=== PATIENT | female | born 1990 | race American Indian/Alaskan Native ===

== ENCOUNTER 2017-03-01 22:29 | Emergency (ER) | payer SELFPAY ==
[2017-03-01 23:04] VITALS: BP 121/57
--- NOTE | 2017-03-02 14:38 | ED Elopement Review ---
ED Pt Elopement review - Call Back decision Pt Call Back Decision: Pt to F/U with PMD
== END 2017-03-01 22:52 | disposition left against medical advice (07) ==
LOC: ED 22:29
DX: R53.1 Weakness (principal); Z53.21 Procedure and treatment not carried out due to patient leaving prior to being seen by health care provider
CPT/HCPCS: 93005; 93010

== ENCOUNTER 2018-07-22 16:02 | Inpatient (IN) | payer MEDICAID ==
[2018-07-22 17:08] LABS: Hemoglobin 7.9 gm/dl (10.1-14.3); Mean Corpuscular HGB Conc 33 % (30-34); Mean Corpuscular Volume 87 fl (79-97); Platelet Count 205 K/mm3 (140-440); Red Blood Count 2.75 M/mm3 (3.65-5.03); Red Cell Distribution Width 14.9 % (13.2-15.2)
[2018-07-22 17:15] LABS: Bacteria,Urine 1+ /HPF (Negative); Bilirubin,Urine NEG (Negative); Blood,Urine NEG (Negative); Color,Urine Amber (Yellow); Mucus,Urine 1+ /HPF; Protein,Urine >500 mg/dL (Negative)
[2018-07-22 17:28] LABS: Alanine Aminotransferase 9 units/L (7-56)
[2018-07-22 17:52] LABS: Uric Acid 6.5 mg/dL (3.5-7.6)
[2018-07-23] MEDS ORDERED: ZOFRAN IV PRN (07:17)
--- NOTE | 2018-07-23 07:29 | History and Physical Report ---
History of Present Illness Date of examination: 07/23/18 Date of admission: 07/22/18 19:21 Chief complaint: Swollen feet History of present illness: Pt is a 28yo BF EDC 09/05/18; EGA 33 5/7 weeks presents to L&D complaining of swollen feet and elevated BP's. BP 160/101 but she denies headaches or blurred vision. PIH labs - WNL except urine showed >500mg protein. She received care at [facility] and co-managed by [facility], but re cords are not available. course significant for PIH and Previous C Section. Past History Past Medical History: no pertinent history Past Surgical History: section Social history: no significant social history, - Obstetrical History Expected Date of Delivery: 09/05/18 Actual Gestation: 33 Week(s) 6 Day(s) : 2 Medications and Allergies Allergies Allergy/AdvReac Type Severity Reaction Status Date / Time acetaminophen Allergy Rash Verified 07/22/18 16:43 aspirin Allergy Rash Verified 07/22/18 16:43 ibuprofen Allergy Rash Verified 07/22/18 16:43 Penicillins Allergy Hives Verified 07/22/18 16:43 Home Medications Medication Instructions Recorded Confirmed Last Taken Type Hydroxyprogesterone Caproat/Pf 1 mg IM QWEEK 07/22/18 07/22/18 07/20/18 12:00 History [Hydroxyprogest 250 mg/ml Vial] 1 Pnv No.103/Folic/Om3s/Fish Oil 1 each PO DAILY 07/22/18 07/22/18 07/18/18 09:00 History [ Gummies] 1 Active Meds: Active Medications Acetaminophen (Tylenol) 650 mg PO Q4H PRN PRN Reason: Pain MILD(1-3)/Fever >100.5/MARCOS Betamethasone Acet/Betameth SodPhos (Celestone Soluspan) 12 mg IM Q24HR DARREN Stop: 07/24/18 10:01 Docusate Sodium (Colace) 100 mg PO Q12H PRN PRN Reason: Constipation Lactated Ringer's (Lactated Ringers) 1,000 mls @ 125 mls/hr IV DIRECT DARREN Multivitamins/Iron/Calcium ( Vitamin) 1 each PO QDAY DARREN Ondansetron HCl (Zofran) 4 mg IV Q6H PRN PRN Reason: Nausea And Vomiting Review of Systems All systems: negative - Vital Signs Vital signs: Vital Signs Pulse BP 85 160/101 07/22/18 16:23 07/22/18 16:23 Temp Pulse Resp BP Pulse Ox 98.3 F 79 18 146/83 100 07/22/18 19:40 07/23/18 07:05 07/22/18 19:40 07/23/18 07:05 07/23/18 03:12 - Physical Exam Breasts: Positive: deferred Cardiovascular: Regular rate Lungs: Positive: Clear to auscultation Abdomen: Positive: normal appearance Genitourinary (Female): Positive: normal external genitalia Uterus: Positive: enlarged Extremities: Positive: edema (2+) - Obstetrical FHR: category 1 Uterine Contraction Monitor Mode: External Uterine Contraction Pattern: Absent Results Result Diagrams: 07/22/18 17:00 07/22/18 17:00 Abnormal lab results 07/22/18 07/22/18 Range/Units 17:00 17:00 RBC 2.75 L (3.65-5.03) M/mm3 Hgb 7.9 L (10.1-14.3) gm/dl Hct 24.0 L (30.3-42.9) % Creatinine 0.6 L (0.7-1.2) mg/dL Lactate Dehydrogenase 253 H (91-180) units/L All other labs normal. Assessment and Plan - Patient Problems (1) 33 weeks gestation of Onset Date: 07/23/18 Current Visit: Yes Status: Acute Plan to address problem: A: IUP @ 33 5/7 weeks PIH P: Will admit for Observation Obtain 24 hr urine for protein Manage BP with IV Hydralazine as necessary Begin Betamethasone [facility] consult Obtain records (2) PIH ( induced hypertension) Onset Date: 07/23/18 Current Visit: Yes Status: Acute Qualifiers: Trimester: third trimester Qualified Code(s): O13.3 - Gestational [-induced] hypertension without significant proteinuria, third trimester
[2018-07-23] MEDS ORDERED: TYLENOL PO PRN (08:00)
[2018-07-23] MEDS ORDERED: COLACE PO PRN (08:00)
[2018-07-23] MEDS: CELESTONE SOLUSPAN IM SCH (10:02)
[2018-07-23] MEDS: PRENATAL VITAMIN PO SCH (12:13)
[2018-07-23] MEDS: LACTATED RINGERS 1,000 ML IV SCH (14:40)
--- NOTE | 2018-07-23 14:44 | Consultation ---
History of Present Illness Consult date: 07/23/18 Requesting physician: KATIA KHALIL Reason for consult: gestational hypertension History of present illness: Thank you for your recent consultation regarding the above named patient. As you are aware, this is a 28 year old para 0101 at 33+ weeks gestation (based on an TEJAS of 09/05/18) This is a patient that was admitted to [facility] on Saturday due to complaints of elevated blood pressure and swollen feet. Her BP in her OBs office was > 160/110. She was admitted to rule out preeclampsia. Her blood pressure was moderate to severe on admissoin (see below) She is currently under observation to rule out preeclampsia. Baseline 24 hour urine showed : NOT AVAILABLE. A 24 hour urine is PENDING. Her labs show no signs of HELLP. Symptomatically, the patient describes DENIES dizziness and denies headache. She does NOT describe recent swelling of the face and upper extremities. Her blood pressures are labile (see below) PAST OBSTETRICAL HISTORY: 2013: CS at 26 weeks. BW: 1 pound 12 oz. Complicated by possible plac ental abruption in the setting of preeclampsia (?) PAST MEDICAL HISTORY: * Patient gives a NOT give a history of chronic hypertension. AVAILABLE LAB TEST ON ADMISSION: CBC: See labs in chart Baseline 24 hour urine: > NOT AVAILABLE Current 24 hour urine: PENDING. [facility] ULTRASONOGRAPHY See report in patients chart. RECENT BLOOD PRESSURES: 130/77, 148/79, 162/100 FHR Tracing: Category 1. No recurrent decelerations. Past History Past Medical History: no pertinent history Past Surgical History: no surgical history - Obstetrical History : 2 Medications and Allergies Allergies Allergy/AdvReac Type Severity Reaction Status Date / Time acetaminophen Allergy Rash Verified 07/22/18 16:43 aspirin Allergy Rash Verified 07/22/18 16:43 ibuprofen Allergy Rash Verified 07/22/18 16:43 Penicillins Allergy Hives Verified 07/22/18 16:43 Home Medications Medication Instructions Recorded Confirmed Last Taken Type Hydroxyprogesterone Caproat/Pf 1 mg IM QWEEK 07/22/18 07/22/18 07/20/18 12:00 History [Hydroxyprogest 250 mg/ml Vial] 1 Pnv No.103/Folic/Om3s/Fish Oil 1 each PO DAILY 07/22/18 07/22/18 07/18/18 09:00 History [ Gummies] 1 Active Meds: Active Medications Acetaminophen (Tylenol) 650 mg PO Q4H PRN PRN Reason: Pain MILD(1-3)/Fever >100.5/MARCOS Betamethasone Acet/Betameth SodPhos (Celestone Soluspan) 12 mg IM Q24HR [facility] Stop: 07/24/18 10:01 Last Admin: 07/23/18 10:02 Dose: 12 mg Documented by: Docusate Sodium (Colace) 100 mg PO Q12H PRN PRN Reason: Constipation Lactated Ringer's (Lactated Ringers) 1,000 mls @ 125 mls/hr IV DIRECT DARREN Multivitamins/Iron/Calcium ( Vitamin) 1 each PO QDAY [facility] Last Admin: 07/23/18 12:13 Dose: Not Given Documented by: Ondansetron HCl (Zofran) 4 mg IV Q6H PRN PRN Reason: Nausea And Vomiting - Vital Signs Vital signs: Vital Signs Pulse BP 85 160/101 07/22/18 16:23 07/22/18 16:23 Temp Pulse Resp BP Pulse Ox 97.8 F 85 18 141/91 99 07/23/18 12:14 07/23/18 14:31 07/23/18 12:14 07/23/18 14:31 07/23/18 08:05 Results Result Diagrams: 07/22/18 17:00 07/22/18 17:00 Abnormal lab results 07/22/18 07/22/18 Range/Units 17:00 17:00 RBC 2.75 L (3.65-5.03) M/mm3 Hgb 7.9 L (10.1-14.3) gm/dl Hct 24.0 L (30.3-42.9) % Creatinine 0.6 L (0.7-1.2) mg/dL Lactate Dehydrogenase 253 H (91-180) units/L All other labs normal. Assessment and Plan ASSESSMENT * This is a 28 year old para 0101 at 33 weeks gestation with elevated blood pressure. * Rule out preeclampsia. * Slightly elevated blood pressure. * NO signs of HELLP syndrome. * At the present gestational age, there is some utility to an attempt to prolong gestation to improve outcome. * prolongation should NOT occur in the presence of any signs of symptoms of severe preeclampsia. * Labs show no evidence of HELLP. * Category 1 tracing. RECOMMENDATION: Given her gestational age we would recommend DELIVERY in the presence of any findings which would suggest SEVERE preeclampsia. However, at present, we recommend following up the patient's 24 hour urine along with continued observation. If the patient develops any of the criteria for delivery (see below) during observation we would recommend taking steps to deliver this . Would proceed as follows: 1. Agree with admission for serial BP, urinalysis, PIH labs and observation. 2. Steroids have been administered to enhance lung maturity 3. Obtain a 24 hour urine for trend in protein. 4. Kindly follow-up the results of this patient's repeat 24-hour urine for protein and creatinine clearance and forward them to [facility] for review. 5. At the current gestational age the threshold for delivery would be > 5000 mg of protein or ANY symptoms or lab findings suggestive of severe preeclampsia. 6. In the presence of overt evidence of severe preeclampsia we recommend delivery of this patient. 7. I have indicated that a persistent headache unresponsive to analgesia would be a clear indication for delivery of this patient. 8. Kindly contact [facility] if there is any question as to whether this patient is a candidate for delivery. 9. At 33 weeks gestation; it would appear that there is some benefit to an expectant management protocol to prolong gestation in order to improve outcome without increasing maternal morbidity. In a patient with MILD preeclampsia we recommend DELIVERY at 37 weeks. In a patient with SEVERE preeclampsia we recommend DELIVERY either AT DIAGNOSIS or at 34 weeks gestation. Reference: REFERENCE: Medically indicated late- and early-term deliveries. Committee Opinion No. 560. [employer] [place] [employer]. Obstet Gynecol 2013;121:31396. 10. The indications for discontinuation of expectant management and DELIVERY in this patient would include ANY of the following: * heart rate abnormalities, (ie, bradycardia , repetitive late or variable decelerations) * Significant new onset proteinuria (see above) * Thrombocytopenia * Hemolysis, * Elevation in liver function tests * Blood pressure that is very labile or poorly controlled with reasonable doses of intravenous labetalol * Symptoms of severe pre-eclampsia epigastric discomfort, headache, dizziness, blurred vision, RUQ pain, seizure. * Standard obstetrical indications Thank you for allowing us to participate in the care of this patient. We look forward to the opportunity to assist in her continued management. If you have any questions, we may be reached [phone]. Shaila Mondragon M.D.
[2018-07-23] MEDS ORDERED: APRESOLINE IV ONE (17:31)
[2018-07-24] MEDS: LACTATED RINGERS 1,000 ML IV SCH ×2 (05:47→14:44)
--- NOTE | 2018-07-24 10:51 | Progress Note ---
Assessment and Plan - Patient Problems (1) 33 weeks gestation of Onset Date: 07/23/18 Current Visit: Yes Status: Acute Plan to address problem: A: IUP @ 33 6/7 weeks Severe Preeclampsia Previous C Section P: Discussed with [facility] to proceed with delivery. S/P Betamethasone NICU consultation (2) PIH ( induced hypertension) Onset Date: 07/23/18 Current Visit: Yes Status: Acute Qualifiers: Trimester: third trimester Qualified Code(s): O13.3 - Gestational [-induced] hypertension without significant proteinuria, third trimester Subjective - Subjective Date of service: 07/24/18 Principal diagnosis: IUP @ 33 6/7 weeks; Preeclampsia Interval history: Pt is a 28yo BF EDC 09/05/18; EGA 33 6/7 weeks presents to L&D complaining of swollen feet and elevated BP's. BP 160/101 but she denies headaches or blurred vision. PIH labs - WNL except urine showed >500mg protein. She received care at [facility] and co-managed by [facility]. Her 24 hr urine showed 4035mg protein. Patient reports: movement normal, no new complaints, no loss of fluid, no vaginal bleeding, no contractions Objective - Vital Signs Vital Signs: Vital Signs - 12hr 07/24/18 07/24/18 07/24/18 00:08 00:25 02:08 Temperature 98.1 F Pulse Rate 91 H 96 H Respiratory 18 Rate Blood Pressure 146/85 131/73 07/24/18 07/24/18 07/24/18 04:26 04:27 05:28 Temperature 98.2 F Pulse Rate 91 H 89 90 Respiratory 18 Rate Blood Pressure 165/93 156/88 163/87 07/24/18 07/24/18 07/24/18 06:28 07:28 08:28 Temperature Pulse Rate 92 H 96 H 114 H Respiratory Rate Blood Pressure 170/95 133/99 123/78 07/24/18 07/24/18 07/24/18 09:29 10:47 10:48 Temperature 98.2 F Pulse Rate 99 H 88 Respiratory 18 Rate Blood Pressure 160/82 144/82 - Exam Lungs: Clear to auscultation Abdomen: Present: normal appearance, soft Uterus: Present: normal FHR: category 1 Uterine Contraction Monitor Mode: External Uterine Contraction Pattern: Absent - Labs Labs: Abnormal Labs 07/22/18 07/22/18 07/23/18 17:00 17:00 18:10 RBC 2.75 L Hgb 7.9 L Hct 24.0 L Creatinine 0.6 L Lactate Dehydrogenase 253 H Ur Total Protein 24 Hr 4035.00 H Urine Total Protein 269 H Laboratory Results - last 24 hr 07/23/18 18:10 Urine Total Volume 1500 Ur Total Protein 24 Hr 4035.00 H Urine Total Protein 269 H
[2018-07-24] MEDS: PRENATAL VITAMIN PO SCH (11:21)
[2018-07-24] MEDS: CELESTONE SOLUSPAN IM SCH (11:21)
[2018-07-24] MEDS ORDERED: BICITRA PO ONE (14:16)
[2018-07-24] MEDS ORDERED: REGLAN IV ONE (14:16)
[2018-07-24] MEDS ORDERED: PEPCID IV ONE (14:16)
[2018-07-24] MEDS ORDERED: GENTAMICIN 120 MG in NACL 0.9% 100 ML IV SCH (14:30)
[2018-07-24] MEDS ORDERED: CLEOCIN 600 MG/50 mL 600 MG/50 ML BAG IV NR (15:00)
[2018-07-24] MEDS ORDERED: LACTATED RINGERS 1,000 ML IV SCH (15:00)
[2018-07-24] MEDS ORDERED: PITOCin/NS 20 UNIT/1000ML DRIP 20 UNITS/1,000 ML BAG IV SCH (15:00)
[2018-07-24] MEDS ORDERED: GENTAMICIN/NS 120MG/100ML 120 MG/100 ML BAG IV ONE (15:00)
[2018-07-24 15:42] LABS: Hematocrit 24.1 % (30.3-42.9); Hemoglobin 7.7 gm/dl (10.1-14.3); Mean Corpuscular HGB Conc 32 % (30-34); Mean Corpuscular Volume 87 fl (79-97); Platelet Count 198 K/mm3 (140-440); Red Blood Count 2.77 M/mm3 (3.65-5.03); Red Cell Distribution Width 15.3 % (13.2-15.2)
--- NOTE | 2018-07-24 16:09 | Consultation ---
History of Present Illness Consult date: 07/24/18 Requesting physician: KATIA KHALIL Reason for consult: gestational hypertension History of present illness: Thank you for your recent consultation regarding the above named patient. As you are aware, this is a 28 year old para 0101 at 33-34 weeks gestation (based on an TEJAS of 09/05/18) This is a patient that was admitted to [facility] on Saturday due to complaints of elevated blood pressure and swollen feet. Her BP in her OBs office was > 160/110. She was admitted to rule out preeclampsia. Her blood pressure was moderate to severe on admissoin (see below) She is currently under observation to rule out preeclampsia. Baseline 24 hour urine showed : NOT AVAILABLE. A 24 hour urine is 137/80, 185/105, 168/89, 151/70. Her labs show no signs of HELLP. Symptomatically, the patient describes DENIES dizziness and denies headache. She does NOT describe recent swelling of the face and upper extremities. Her blood pressures are labile (see below) PAST OBSTETRICAL HISTORY: 2013: CS at 26 weeks. BW: 1 pound 12 oz. Complicated by possible placental abruption in the setting of preeclampsia (?) PAST MEDICAL HISTORY: * Patient gives a NOT give a history of chronic hypertension. AVAILABLE LAB TEST ON ADMISSION: CBC: See labs in chart Baseline 24 hour urine: > NOT AVAILABLE Current 24 hour urine: 4035. [facility] ULTRASONOGRAPHY See report in patients chart. RECENT BLOOD PRESSURES: 137/80, 185/105, 168/89, 151/70 FHR Tracing: Category 1. No recurrent decelerations. Past History Past Medical History: no pertinent history Past Surgical History: section - Obstetrical History : 2 Medications and Allergies Allergies Allergy/AdvReac Type Severity Reaction Status Date / Time acetaminophen Allergy Rash Verified 07/22/18 16:43 aspirin Allergy Rash Verified 07/22/18 16:43 ibuprofen Allergy Rash Verified 07/22/18 16:43 Penicillins Allergy Hives Verified 07/22/18 16:43 Home Medications Medication Instructions Recorded Confirmed Last Taken Type Hydroxyprogesterone Caproat/Pf 1 mg IM QWEEK 07/22/18 07/22/18 07/20/18 12:00 History [Hydroxyprogest 250 mg/ml Vial] 1 Pnv No.103/Folic/Om3s/Fish Oil 1 each PO DAILY 07/22/18 07/22/18 07/18/18 09:00 History [ Gummies] 1 Active Meds: Active Medications Acetaminophen (Tylenol) 650 mg PO Q4H PRN PRN Reason: Pain MILD(1-3)/Fever >100.5/MARCOS Docusate Sodium (Colace) 100 mg PO Q12H PRN PRN Reason: Constipation Lactated Ringer's (Lactated Ringers) 1,000 mls @ 125 mls/hr IV DIRECT DARREN Last Admin: 07/24/18 14:44 Dose: 125 mls/hr Documented by: Oxytocin/Sodium Chloride (Pitocin/Ns 20 Unit/1000ml Drip) 20 units in 1,000 mls @ 0 mls/hr IV TITR DARREN Lactated Ringer's (Lactated Ringers) 1,000 mls @ 2,250 mls/hr IV PREOP DARREN Stop: 07/25/18 15:27 Clindamycin HCl (Cleocin 600 Mg/50 Ml) 600 mg in 50 mls @ 100 mls/hr IV PREOP NR; Protocol Stop: 07/24/18 23:59 Multivitamins/Iron/Calcium ( Vitamin) 1 each PO QDAY [facility] Last Admin: 07/24/18 11:21 Dose: Not Given Documented by: Ondansetron HCl (Zofran) 4 mg IV Q6H PRN PRN Reason: Nausea And Vomiting - Vital Signs Vital signs: Vital Signs Pulse BP 85 160/101 07/22/18 16:23 07/22/18 16:23 Temp Pulse Resp BP Pulse Ox 98.4 F 97 H 18 186/104 99 07/24/18 13:35 07/24/18 14:28 07/24/18 13:35 07/24/18 14:28 07/23/18 08:05 Results Result Diagrams: 07/24/18 15:02 07/22/18 17:00 Abnormal lab results 07/23/18 07/24/18 Range/Units 18:10 15:02 WBC 12.0 H (4.5-11.0) K/mm3 RBC 2.77 L (3.65-5.03) M/mm3 Hgb 7.7 L (10.1-14.3) gm/dl Hct 24.1 L (30.3-42.9) % RDW 15.3 H (13.2-15.2) % Ur Total Protein 24 Hr 4035.00 H (2-200) mg/dL Urine Total Protein 269 H (5-11.8) mg/dL All other labs normal. Assessment and Plan ASSESSMENT * This is a 28 year old para 0101 at 33-34 weeks gestation with elevated blood pressure. * Rule out preeclampsia. * Slightly elevated blood pressure. * NO signs of HELLP syndrome. * At present, we would recommend DELIVERY rather than expectant management. Blood pressures during observation are consistent with SEVERE PREECLAMPSIA. RECOMMENDATIONS: I've indicated to the patient that there are a number of medical complications which would require early delivery as a general rule for any gestation. I've indicated that unexplained vaginal bleeding, spontaneous labor, - induced hypertension and other complications would require delivery before an elective delivery. I've also indicated the recommendations from the [place] [employer] published in the ACOG committee opinion number 560 regarding early term delivery. As well as recent studies from the Journal Obstetrics and Gynecology published in July [address] Aparicio et al indicate that for chronic hypertension with signs of severe preelcampsia should be delivered after 34 weeks of gestation. Based on the fact that this patient has preeclampsia and new onset neurological symptoms as well as elevated systolic blood pressure we would recommend DELIVERY of this rather than continued expectant management. REFERENCE: Medically indicated late- and early-term deliveries. Committee Opinion No. 560. [place] [employer]. Obstet Gynecol 2013;121:95536. Would proceed as follows: * Given the current findings we would recommend delivery for this patient. * We recommend DELIVERY for this patient. * We would recommend repeat CS for. Thank you for allowing us to participate in the care of this patient. We look forward to the opportunity to assist in her continued management. If you have any questions, we may be reached [phone] Shaila Mondragon M.D.
[2018-07-24] MEDS ORDERED: APRESOLINE ONE ×2 (19:17→23:27)
[2018-07-24] MEDS ORDERED: APRESOLINE IV ONE (19:45)
[2018-07-25] MEDS ORDERED: WATER FOR IRRIG STERILE IR ONE (00:20)
[2018-07-25] MEDS ORDERED: NACL 0.9% IR ONE (00:20)
--- NOTE | 2018-07-25 01:11 | Operative Report ---
Operative Report Operative Report: Date of procedure: 07/25/2018 Pre-operative diagnosis: 1. Intrauterine at 34-0/7 weeks 2. Severe preeclampsia 3. Previous Post-operative diagnosis: Same Procedure name(s): Repeat low transverse section Surgeon: Bill Garnica MD [employer]: None Anesthesia: Spinal anesthesia by Dr. Stafford EBL: 400 mls Findings: A 2026 gram female Apgars 5 at 1 minute 9 at 5 minutes. Clear amniotic fluid. Normal uterus. Normal tubes and ovaries bilaterally. Procedure: After the patient was prepped and draped in usual sterile fashion, and after satisfactory level of epidural anesthesia was obtained, the skin knife was used to make a transverse skin incision through the previous skin scar. The incision was excised down to layer of the fascia, which was nicked in the midline and extended laterally using the Bovie cautery. The rectus muscles were dissected off the rectus fascia both superiorly and inferiorly. The rectus bellies in the midline, and the peritoneum was entered under direct visualization. The peritoneal incision was extended superiorly and inferiorly. A bladder flap was created and the bladder blade was then placed. The uterus was scored in a curvilinear linear fashion, entered in the midline revealing clear amniotic fluid. The infant's head was delivered onto the surgical field, and the oropharynx and nasopharynx were bulb suctioned. The rest of the infant's body was delivered, cord was doubly clamped and cut and the infant was handed to the waiting respiratory team. Cord blood was then obtained. The placenta was manually removed from the uterus, and the uterus removed from its normal anatomical position. After gentle uterine lavage, the incision was inspected and found to be without extensions. It was then closed in 2 layers using 0 Vicryl suture in a running interlocking fashion, the second layer imbricating the first. After good hemostasis was achieved, copious amounts or irrigation was performed, and the gutters were suctioned free of blood and blood clots. The Tisseel sealant was sprayed across the uterine incision. The uterus was then returned to its normal anatomical position, and after excellent hemostasis assured, the peritoneum was re-approximated using 3-0 Vicryl suture in a running interlocking fashion, and then the rectus muscles were re- approximated using 3-0 Vicryl suture in a [id number] configuration. The fascia was then re-approximated using 0 Vicryl suture in running interlocking fashion. The subcutaneous layer was made hemostatic using Bovie cautery, the Tisseel sealant was sprayed across the fascial incision and the skin edges re- approximated using 4-0 Vicryl suture in a sub-cuticular fashion. Patient tolerated the procedure well was transported to recovery in stable condition.
[2018-07-25] MEDS ORDERED: PHENERGAN PR PRN (01:13)
[2018-07-25] MEDS ORDERED: IBUPROFEN PO PRN (01:13)
[2018-07-25] MEDS ORDERED: TORADOL IV PRN ×3 (01:13→01:38)
[2018-07-25] MEDS ORDERED: MYLICON PO PRN (01:13)
[2018-07-25] MEDS ORDERED: MAGNESIUM SULFATE 4GM/100ML 4 GM/100 ML BAG IV ONE (01:13)
[2018-07-25] MEDS ORDERED: LANSINOH TP PRN (01:13)
[2018-07-25] MEDS ORDERED: SENOKOT PO PRN (01:13)
[2018-07-25] MEDS ORDERED: TUCKS PAD TP PRN (01:13)
[2018-07-25] MEDS ORDERED: MILK OF MAGNESIA PO PRN (01:13)
[2018-07-25] MEDS ORDERED: NARCAN 0.4 MG/1 ML IV PRN (01:13)
[2018-07-25] MEDS ORDERED: TYLENOL PO PRN (01:38)
[2018-07-25] MEDS ORDERED: ZOFRAN IV PRN (01:38)
--- NOTE | 2018-07-25 01:46 | Progress Note ---
Subjective Date of service: 07/25/18 Principal diagnosis: IUP @ 33 6/7 weeks; Preeclampsia Interval history: Surgeon requested block for postop analgesia in this 28 y/o female s/p c section. Informed consent obtained. After completion of the procedure, bilateral quadratus lumborum blocks were performed in clean fashion with chloroprep. 30 ml 0.25% bupivacaine with 4 mg decadron placed in each side. Ultrasound guidance was used. Pt tolerated the procedure well. Objective - Constitutional Vitals: Vital Signs - 12hr 07/24/18 07/24/18 07/24/18 14:28 18:28 19:18 Temperature Pulse Rate 97 H 103 H 102 H Respiratory Rate Blood Pressure 186/104 199/103 168/95 07/24/18 07/24/18 07/24/18 19:20 19:27 19:28 Temperature 98.8 F Pulse Rate 102 H 104 H Respiratory 18 Rate Blood Pressure 168/95 160/85 07/24/18 07/24/18 07/24/18 20:09 20:28 23:14 Temperature Pulse Rate 117 H 110 H 106 H Respiratory Rate Blood Pressure 141/87 161/94 172/104 07/24/18 07/24/18 23:36 23:38 Temperature Pulse Rate 110 H 110 H Respiratory Rate Blood Pressure 174/102 174/102 - Labs CBC & Chem 7: 07/24/18 15:02 07/22/18 17:00 Labs: Abnormal lab results 07/24/18 Range/Units 15:02 WBC 12.0 H (4.5-11.0) K/mm3 RBC 2.77 L (3.65-5.03) M/mm3 Hgb 7.7 L (10.1-14.3) gm/dl Hct 24.1 L (30.3-42.9) % RDW 15.3 H (13.2-15.2) %
[2018-07-25] MEDS ORDERED: SODIUM CHLORIDE FLUSH SYRINGE 10 ML IV NR ×2 (02:00)
[2018-07-25] MEDS ORDERED: CLEOCIN 600 MG/50 mL 600 MG/50 ML BAG IV SCH (02:00)
[2018-07-25] MEDS: PITOCin/NS 20 UNIT/1000ML DRIP 20 UNITS/1,000 ML BAG IV SCH ×2 (03:52→07:05)
[2018-07-25] MEDS: MAGNESIUM SULFATE 40GM/1000ML 40 GM/1,000 ML BAG IV SCH ×2 (03:52→19:38)
[2018-07-25] MEDS: NORCO 5/325 PO PRN ×4 (05:36→22:00)
[2018-07-25] MEDS: PRENATAL VITAMIN PO SCH (10:00)
[2018-07-25] MEDS: FEOSOL PO SCH (10:00)
[2018-07-25] MEDS ORDERED: APRESOLINE IV PRN (11:28)
[2018-07-25] MEDS: NORMODYNE PO SCH ×2 (13:57→22:00)
[2018-07-25 15:04] LABS: Hemoglobin 7.3 gm/dl (10.1-14.3)
[2018-07-25] MEDS: LACTATED RINGERS 1,000 ML IV SCH (19:38)
[2018-07-26] MEDS ORDERED: M-M-R II VACCINE SUB-Q ONE (06:00)
[2018-07-26] MEDS ORDERED: BOOSTRIX IM ONE (06:00)
[2018-07-26] MEDS: NORCO 5/325 PO PRN ×2 (09:36→16:35)
[2018-07-26] MEDS: FEOSOL PO SCH (10:00)
[2018-07-26] MEDS: PRENATAL VITAMIN PO SCH (10:01)
[2018-07-26] MEDS: NORMODYNE PO SCH ×2 (10:01→22:26)
--- NOTE | 2018-07-26 10:35 | Progress Note ---
Assessment and Plan - Patient Problems (1) 33 weeks gestation of Onset Date: 07/23/18 Current Visit: Yes Status: Resolved (2) PIH ( induced hypertension) Onset Date: 07/23/18 Current Visit: Yes Status: Resolved Qualifiers: Trimester: third trimester Qualified Code(s): O13.3 - Gestational [-induced] hypertension without significant proteinuria, third trimester (3) Status post Onset Date: 07/26/18 Current Visit: Yes Status: Resolved Plan to address problem: A: S/P Repeat C Section - POD #1 Doing well PIH - BP's stable on labetolol 200mg BID Asymptomatic anemia - stable P: Continue RPOC Anticipate discharge in 24-48hrs Subjective - Subjective Date of service: 07/26/18 Principal diagnosis: s/p C Section - POD #1 Interval history: Pt is feeling well without complaints. Bleeding improved. She denies headaches or blurred vision. Patient reports: appetite normal, voiding normally, pain well controlled, flatus, ambulating normally, no dizzy ambulation, no nauseated [place]: doing well, in NICU Objective - Vital Signs Latest vital signs: Vital Signs Temp Pulse Resp BP BP BP 07/26/18 07:11 98.1 F 86 18 145/91 07/26/18 04:25 98.4 F 88 20 130/86 07/26/18 03:30 97.2 F L 89 18 128/64 07/26/18 03:26 89 128/64 07/26/18 03:17 87 109/60 07/26/18 02:17 83 133/78 07/26/18 01:20 98.2 F 94 H 18 142/79 07/26/18 01:17 94 H 142/79 07/26/18 00:17 93 H 132/70 07/25/18 23:17 90 127/66 07/25/18 22:16 90 140/89 07/25/18 22:00 18 07/25/18 21:17 96 H 124/76 07/25/18 20:17 90 121/74 07/25/18 19:17 98.1 F 89 18 148/98 07/25/18 19:16 89 148/98 07/25/18 19:09 91 H 147/97 07/25/18 18:54 91 H 142/92 07/25/18 18:39 90 150/106 07/25/18 18:24 90 140/94 07/25/18 18:09 85 145/93 07/25/18 17:54 94 H 135/89 07/25/18 17:39 98 H 154/107 07/25/18 17:24 92 H 145/97 07/25/18 17:09 93 H 153/100 07/25/18 16:54 95 H 152/102 07/25/18 16:39 93 H 147/94 07/25/18 16:24 87 125/77 07/25/18 16:09 90 122/75 07/25/18 15:54 87 126/79 07/25/18 15:39 90 135/86 07/25/18 15:24 91 H 142/86 07/25/18 15:09 93 H 140/85 07/25/18 14:54 90 140/85 07/25/18 14:39 94 H 140/85 07/25/18 14:24 90 142/87 07/25/18 14:09 96 H 147/90 07/25/18 13:54 96 H 157/97 07/25/18 13:39 105 H 168/102 07/25/18 13:09 104 H 151/96 07/25/18 12:54 98 H 168/103 07/25/18 12:39 101 H 163/100 07/25/18 12:24 98 H 160/100 07/25/18 12:10 98.3 F 92 H 22 146/85 07/25/18 12:09 100 H 153/90 07/25/18 11:54 98 H 169/109 07/25/18 11:39 100 H 166/107 07/25/18 11:24 96 H 165/106 07/25/18 11:09 97 H 158/99 07/25/18 10:54 98 H 166/98 07/25/18 10:39 95 H 160/91 Intake and Output 07/25/18 07/26/18 07/26/18 22:59 06:59 14:59 Intake Total 18.333 147.083 360 Output Total 4550 700 Balance -4531.663 -724.970 360 Intake: IV 18.333 147.083 MAGNESIUM SULFATE 40GM/ 18.333 147.083 1000ML 40 gm In 1,000 ml @ 1 GM/HR 25 mls/hr IV DIRECT [facility] Rx#:[id number] Oral 360 Output: Urine 4550 700 Void 4550 700 Other: Total, Intake Amount 360 Total, Output Amount 800 700 - Exam Breasts: Present: deferred Cardiovascular: Present: Regular rate Lungs: Present: Clear to auscultation Abdomen: Present: normal appearance, soft Uterus: Present: normal, firm, fundal height below umbilicus Extremities: Present: normal Incision: Present: normal, dry, intact, dressed - Labs Labs: Abnormal lab results 07/25/18 07/25/18 07/25/18 Range/Units 14:32 14:32 18:31 Hgb 7.3 L (10.1-14.3) gm/dl Hct 23.0 L (30.3-42.9) % Magnesium 6.30 H 6.90 H (1.7-2.3) mg/dL Laboratory Tests 07/22/18 07/22/18 07/22/18 17:00 17:00 17:00 WBC 9.2 RBC 2.75 L Hgb 7.9 L Hct 24.0 L MCV 87 MCH 29 MCHC 33 RDW 14.9 Plt Count 205 Creatinine 0.6 L Estimated GFR > 60 Uric Acid 6.5 Magnesium AST 18 ALT 9 Lactate Dehydrogenase 253 H Urine Color [place] Urine Turbidity Clear Urine pH 6.0 Ur Specific [place] 1.029 Urine Protein >500 Urine Glucose (UA) Neg Urine Ketones Tr Urine Blood Neg Urine Nitrite Neg Urine Bilirubin Neg Urine Urobilinogen 4.0 Ur Leukocyte Esterase Neg Urine WBC (Auto) 6.0 Urine RBC (Auto) 6.0 U Epithel Cells (Auto) 10.0 Urine Bacteria (Auto) 1+ Urine Mucus 1+ Urine Total Volume Ur Total Protein 24 Hr Urine Total Protein Hep Bs Antigen HIV 1&2 Antibody Rapid HIV P24 Antigen Rubella IgG Antibody Blood Type Antibody Screen 07/22/18 07/23/18 07/24/18 18:50 18:10 14:55 WBC RBC Hgb Hct MCV MCH MCHC RDW Plt Count Creatinine Estimated GFR Uric Acid Magnesium AST ALT Lactate Dehydrogenase Urine Color Urine Turbidity Urine pH Ur Specific [place] Urine Protein Urine Glucose (UA) Urine Ketones Urine Blood Urine Nitrite Urine Bilirubin Urine Urobilinogen Ur Leukocyte Esterase Urine WBC (Auto) Urine RBC (Auto) U Epithel Cells (Auto) Urine Bacteria (Auto) Urine Mucus Urine Total Volume 1500 Ur Total Protein 24 Hr 4035.00 H Urine Total Protein 269 H Hep Bs Antigen HIV 1&2 Antibody Rapid HIV P24 Antigen Rubella IgG Antibody Blood Type O POSITIVE O POSITIVE Antibody Screen Negative Negative 07/24/18 07/25/18 07/25/18 15:02 06:11 14:32 WBC 12.0 H RBC 2.77 L Hgb 7.7 L Hct 24.1 L MCV 87 MCH 28 MCHC 32 RDW 15.3 H Plt Count 198 Creatinine Estimated GFR Uric Acid Magnesium 3.70 H 6.30 H AST ALT Lactate Dehydrogenase Urine Color Urine Turbidity Urine pH Ur Specific [place] Urine Protein Urine Glucose (UA) Urine Ketones Urine Blood Urine Nitrite Urine Bilirubin Urine Urobilinogen Ur Leukocyte Esterase Urine WBC (Auto) Urine RBC (Auto) U Epithel Cells (Auto) Urine Bacteria (Auto) Urine Mucus Urine Total Volume Ur Total Protein 24 Hr Urine Total Protein Hep Bs Antigen HIV 1&2 Antibody Rapid HIV P24 Antigen Rubella IgG Antibody Blood Type Antibody Screen 07/25/18 07/25/18 07/25/18 14:32 14:32 14:32 WBC RBC Hgb 7.3 L Hct 23.0 L MCV MCH MCHC RDW Plt Count Creatinine Estimated GFR Uric Acid Magnesium AST ALT Lactate Dehydrogenase Urine Color Urine Turbidity Urine pH Ur Specific [place] Urine Protein Urine Glucose (UA) Urine Ketones Urine Blood Urine Nitrite Urine Bilirubin Urine Urobilinogen Ur Leukocyte Esterase Urine WBC (Auto) Urine RBC (Auto) U Epithel Cells (Auto) Urine Bacteria (Auto) Urine Mucus Urine Total Volume Ur Total Protein 24 Hr Urine Total Protein Hep Bs Antigen Non-reactive HIV 1&2 Antibody Rapid HIV P24 Antigen Rubella IgG Antibody Immune Blood Type Antibody Screen 07/25/18 07/25/18 14:32 18:31 WBC RBC Hgb Hct MCV MCH MCHC RDW Plt Count Creatinine Estimated GFR Uric Acid Magnesium 6.90 H AST ALT Lactate Dehydrogenase Urine Color Urine Turbidity Urine pH Ur Specific [place] Urine Protein Urine Glucose (UA) Urine Ketones Urine Blood Urine Nitrite Urine Bilirubin Urine Urobilinogen Ur Leukocyte Esterase Urine WBC (Auto) Urine RBC (Auto) U Epithel Cells (Auto) Urine Bacteria (Auto) Urine Mucus Urine Total Volume Ur Total Protein 24 Hr Urine Total Protein Hep Bs Antigen HIV 1&2 Antibody Rapid Non react HIV P24 Antigen Non react Rubella IgG Antibody Blood Type Antibody Screen
[2018-07-26] MEDS: PERCOCET 5/325 PO PRN (20:13)
[2018-07-26] MEDS: IBUPROFEN PO PRN (22:35)
[2018-07-27] MEDS: PERCOCET 5/325 PO PRN (02:15)
[2018-07-27 09:00] VITALS: BP 149/81
[2018-07-27] MEDS: IBUPROFEN PO PRN (09:35)
[2018-07-27] MEDS: PRENATAL VITAMIN PO SCH (09:35)
[2018-07-27] MEDS: NORCO 5/325 PO PRN (09:35)
[2018-07-27] MEDS: NORMODYNE PO SCH (09:35)
--- NOTE | 2018-07-27 10:14 | Progress Note ---
Assessment and Plan - Patient Problems (1) 33 weeks gestation of Onset Date: 07/23/18 Current Visit: Yes Status: Resolved (2) PIH ( induced hypertension) Onset Date: 07/23/18 Current Visit: Yes Status: Resolved Qualifiers: Trimester: third trimester Qualified Code(s): O13.3 - Gestational [-induced] hypertension without significant proteinuria, third trimester (3) Status post Onset Date: 07/26/18 Current Visit: Yes Status: Resolved Plan to address problem: A: S/P Repeat C Section - POD #2 Doing well PIH - BP's stable on labetolol 200mg BID Asymptomatic anemia - stable P: May go home today Follow up in office in 1 week for BP check. Subjective - Subjective Date of service: 07/27/18 Principal diagnosis: s/p C Section - POD #2 Interval history: Pt is feeling well without complaints. Bleeding improved. She denies headaches or blurred vision. She is tolerating a reg diet without nausea or vomiting, ambulating and voiding without difficulty. Patient reports: appetite normal, voiding normally, pain well controlled, flatus, ambulating normally, no dizzy ambulation, no nauseated : doing well, in NICU Objective - Vital Signs Latest vital signs: Vital Signs Temp Pulse Resp BP BP 07/27/18 07:47 97.6 F 79 18 149/81 07/27/18 04:00 98.7 F 79 18 142/84 07/27/18 00:00 99 F 77 18 132/78 07/26/18 22:26 91 H 151/96 07/26/18 20:13 20 07/26/18 19:30 99.7 F H 81 18 146/90 07/26/18 18:42 160/96 Intake and Output 07/26/18 07/27/18 07/27/18 22:59 06:59 14:59 Intake Total 780 300 240 Balance 780 300 240 Intake: Oral 480 240 Intake, Free Water 300 300 Other: Total, Intake Amount 480 240 # Voids Void 1 - Exam Cardiovascular: Present: Regular rate Lungs: Present: Clear to auscultation Abdomen: Present: normal appearance Uterus: Present: normal, firm, fundal height below umbilicus Extremities: Present: edema Incision: Present: normal, dry, intact
--- NOTE | 2018-07-27 10:19 | Discharge Summary ---
Providers - Providers Date of Admission: 07/24/18 09:18 Date of discharge: 07/27/18 Attending physician: KATIA KHALIL 07/23/18 07:37 Consult to Physician [CONS] Routine Comment: Consulting Provider: BAILEY TURNER Physician Instructions: Reason For Exam: IUP @ 33 week 07/24/18 14:18 Consult to Physician [CONS] Routine Comment: Consulting Provider: IRMA CALHOUN Physician Instructions: Reason For Exam: IUP @ 34 weeks Primary care physician: KATIA KHALIL Hospitalization Reason for admission: IUP - , observation, other (Chronic hypertension with superimposed preeclampsia) Delivery: Procedure: section, repeat low transverse Laceration: none Incision: normal, dry, intact Other procedures: none complications: none Discharge diagnosis: delivery baby: female Hospital course: Pt is a 28yo BF EDC 09/05/18; EGA 33 6/7 weeks who presented to L&D co mplaining of swollen feet and elevated BP's. BP 160/101 but she denied headaches or blurred vision. PIH labs - WNL except urine showed >500mg protein. She received [facility] at [facility] and co-managed by SAJAN. Her 24 hr urine showed 4035mg protein and she was therefore dispositioned for delivery due to Severe Preeclampsia. She underwent an uncomplicated Repeat C Section and tolerated the procedure well. By POD #1 she was tolerating a reg diet without nausea or vomiting, ambulating and voiding without difficulty. She was therefore discharged to home on POD #2 in stable condition. Condition at discharge: Good Disposition: [id number] TO HOME OR SELFCARE - Discharge Diagnoses (1) 33 weeks gestation of Status: Resolved (2) PIH ( induced hypertension) Status: Resolved Qualifiers: Trimester: third trimester Qualified Code(s): O13.3 - Gestational [-induced] hypertension without significant proteinuria, third trimester (3) Status post Status: Resolved Plan - Discharge Medications Prescriptions: Ferrous Sulfate [Feosol 325 MG tab] 325 mg PO QDAY #60 tablet HYDROcodone/APAP 5-325 [[place] 5-325 mg TAB] 1 each PO Q6HR PRN #30 tablet PRN Reason: Pain, Moderate (4-6) Ibuprofen [Motrin 800 MG tab] 800 mg PO Q6H PRN #30 tablet PRN Reason: Pain, Mild (1-3) Labetalol [Normodyne TAB] 200 mg PO BID #60 tablet Vit-Fe Fumar-FA [ Vitamin] 1 each PO QDAY #30 tablet - Provider Discharge Summary Activity: routine, no sex for 6 weeks, no heavy lifting 4 weeks, no strenuous exercise Diet: routine Instructions: routine Additional instructions: [] Smoking cessation referral if applicable(refer to patient education folder for contact #) [] Refer to [facility] Book[facility] Call your doctor immediately for: * Fever > 100.5 * Heavy vaginal bleeding ( >1 pad per hour) * Severe persistent headache * Shortness of breath * Reddened, hot, painful area to leg or breast * Drainage or odor from incision. * Keep incision clean and dry at all times and follow doctor's instructions regarding bathing/showering Follow up in office for BP check in 1 week - Follow up plan Follow up: KATIA HKALIL MD [Primary Care Provider] - 7 Days Forms: Work/School Excuse Out Patient
== END 2018-07-27 12:45 | disposition home or self-care (01) | DRG 765 ==
LOC: TRG 16:02 → LD 19:21 → OBSVTOIN 07-24 09:18 → APU 07-25 00:34 → LD 07-25 05:10 → OB 07-26 04:07
PROVIDERS: ADMIT Obstetrics & Gynecology; ATTEND Obstetrics & Gynecology
PROC: 10D00Z1 Extraction of Products of Conception, Low, Open Approach (ICD-10-PCS; principal; 2018-07-25)
PROC: 3E0234Z Introduction of Serum, Toxoid and Vaccine into Muscle, Percutaneous Approach (ICD-10-PCS; 2018-07-26)
DX: O34.211 Maternal care for low transverse scar from previous cesarean delivery (principal); O60.14X0 Preterm labor third trimester with preterm delivery third trimester, not applicable or unspecified; O13.4 Gestational [pregnancy-induced] hypertension without significant proteinuria, complicating childbirth; O14.14 Severe pre-eclampsia complicating childbirth; O90.81 Anemia of the puerperium; D64.9 Anemia, unspecified; Z3A.33 33 weeks gestation of pregnancy; Z37.0 Single live birth; Z23 Encounter for immunization
CPT/HCPCS: 36415; 59025; 81001; 82565; 83615; 83735; 84156; 84450; 84460; 84550; 85014; 85018; 85027; 86592; 86706; 86762; 86850; 86900; 86901; 87806; 88307; 90707; G0378; J0360; J0702; J1580; J1885; J2590; J2765; J3475; J7120

== ENCOUNTER 2020-06-08 19:45 | Emergency (ER) | payer SELFPAY ==
[2020-06-08 21:23] LABS: Basophils % (Auto) 0.8 % (0.0-1.8); Eosinophils # (Auto) 0.1 K/mm3 (0.0-0.4); Eosinophils % (Auto) 1.5 % (0.0-4.3); Hematocrit 32.7 % (30.3-42.9); Hemoglobin 10.1 gm/dl (10.1-14.3); Lymphocytes # (Auto) 2.2 K/mm3 (1.2-5.4); Lymphocytes % (Auto) 42.9 % (13.4-35.0); Mean Corpuscular HGB Conc 31 % (30-34); Mean Corpuscular Volume 88 fl (79-97); Monocytes # (Auto) 0.7 K/mm3 (0.0-0.8); Platelet Count 291 K/mm3 (140-440); Red Cell Distribution Width 18.7 % (13.2-15.2)
[2020-06-08 21:36] LABS: Alanine Aminotransferase 5 units/L (7-56); Albumin 4.4 g/dL (3.9-5); Blood Urea Nitrogen 9 mg/dL (7-17); Calcium 9.5 mg/dL (8.4-10.2); Hemolysis Index 0
[2020-06-08 21:39] LABS: BUN/Creatinine Ratio 15
[2020-06-08 22:47] VITALS: BP 117/81
== END 2020-06-08 23:05 | disposition left against medical advice (07) ==
LOC: ED 19:45
DX: M54.5 Low back pain (principal); Z53.21 Procedure and treatment not carried out due to patient leaving prior to being seen by health care provider
CPT/HCPCS: 36415; 80053; 85025